=== PATIENT | male | born 1995 | race Caucasian/White ===

== ENCOUNTER 2017-03-21 22:59 | Emergency (ER) | payer OTHER ==
[~2017-03-21] VITALS: Ht 177.8 cm; Wt 84.0 kg
[~2017-03-21 22:59] MED LIST: IBUP-727; NAPR-260 PO
[2017-03-21 23:01] VITALS: Ht 177.8 cm; Wt 84.0 kg
--- NOTE | 2017-03-22 00:23 | RADRPT ---
PROCEDURE: XR Chest. CLINICAL INDICATION: Chest pain TECHNIQUE: AP Portable chest. COMPARISON: 04/21/2016 FINDINGS: The cardiomediastinal silhouette is normal. The lungs are clear. The osseous structures are unrema rkable. IMPRESSION: No acute findings. RPTAT: HIKT .Marvin Ambrose MD, MD Date Time Electronically viewed and signed by .Marvin Ambrose MD, on 03/22/2017 00:22 .T/
[2017-03-22] MEDS ORDERED: IBUP-1542 PO (00:33)
--- NOTE | 2017-03-22 00:40 | ERD ---
ER Documentation Chief Complaint Date/Time DATE: 03/22/17 TIME: 00:33 Chief Complaint chest pain on and off x 1 day HPI She is a 21-year-old male who presents to the emergency department with chest pain 1 day. Patient states that his chest pain started approximately 1 PM today. Patient describes the pain to be localized to his left chest. Patient denies any radiation of the pain. Patient states the pain is episodic lasting approximately 2 minutes. Patient states he goes 10-15 minutes without feeling the pain. Patient states the pain is present with any activity or at rest. Patient describes the pain to be "heaviness". Patient states he did take naproxen 1 hour ago. Patient denies any shortness of breath, palpitations, left upper extremity pain, diaphoresis. Patient states that his pain is relieved when taking a deep inspiration. Patient denies any recent surgery, recent travel, history of DVT, history of PE. Patient denies any increase in stress. Patient denies any chest wall trauma. ROS All systems reviewed and are negative except as per history of present illness. Medications Home Meds Active Scripts Ibuprofen* (Motrin*) 600 Mg Tab, 600 MG PO Q6, #30 TAB Prov:ANGEL CLOUD PA-C 03/22/17 Naproxen* (Naprosyn*) 500 Mg Tablet, 500 MG PO BID Y for PAIN AND/OR INFLAMMATION, #30 TAB Prov:JANIS BARRON PA-C 04/21/16 Reported Medications Ibuprofen (Motrin) 600 Mg Tablet 12/29/12 Allergies Allergies: Coded Allergies: No Known Drug Allergies (Verified Allergy, Mild, 04/21/16) PMhx/Soc History of Surgery: Yes (APPENDECTOMY) Anesthesia Reaction: No Hx Neurological Disorder: No Hx Respiratory Disorders: No Hx Cardiac Disorders: No Hx Psychiatric Problems: No Hx Miscellaneous Medical Probl: No Hx Alcohol Use: No Hx Substance Use: No Hx Tobacco Use: No FmHx Family History: No diabetes Physical Exam Vitals Vital Signs Date Time Temp Pulse Resp B/P Pulse Ox O2 Delivery O2 Flow Rate FiO2 03/21/17 23:01 97.4 51 20 148/83 100 Physical Exam GENERAL: Well-developed, well-nourished male. Appears in no acute distress. Speaking in full sentences. HEAD: Normocephalic, atraumatic. EYES: Pupils are equally reactive bilaterally. EOMs grossly intact. No conjunctival erythema. ENT: Moist mucous membranes. No uvula deviation. No kissing tonsils. NECK: Supple. No meningismus. Normal range of motion of the neck. CHEST: Tender to palpation of the left chest wall. Pain is reproducible. LUNG: Clear to auscultation bilaterally. No rhonchi, wheezing, rales or coarse breath sounds. HEART: Regular rate and rhythm. No murmurs, rubs or gallops. ABDOMEN: No scars, ecchymosis or rashes noted. Soft, nontender, and nondistended. Positive bowel sounds in all four quadrants. No rebound tenderness , no guarding. (-) McBurney's point tenderness. No CVA tenderness. BACK: No midline tenderness. EXTREMITIES: Equal pulses bilaterally. No peripheral clubbing, cyanosis or edema. No unilateral leg swelling. NEUROLOGIC: Alert and oriented. Moving all four extremities without any difficulty. Normal speech. Steady gait. SKIN: Normal color. Warm and dry. No rashes or lesions. Procedures/MDM ED COURSE: The patient was stable throughout ED course. I kept the patient and/or family informed of laboratory and diagnostic imaging results throughout the ED course. EKG: Read by Dr. Presley, attending physician. EKG shows sinus bradycardia at a rate of 58 bpm. No arrhythmias, acute ST elevations or T wave changes were noted. DIAGNOSTIC IMAGING: Read by radiologist. DIAGNOSTIC IMAGING REPORT Patient: TIGRE GARCIA : 1995 Age: 21 Sex: M MR #: [id number] DOS: 03/21/17 2334 Ordering MD: ANGEL CLOUD PA-C Location: [facility] Room/Bed: PROCEDURE: XR Chest. CLINICAL INDICATION: Chest pain TECHNIQUE: AP Portable chest. COMPARISON: 04/21/2016 FINDINGS: The cardiomediastinal silhouette is normal. The lungs are clear. The osseous structures are unremarkable. IMPRESSION: No acute findings. RPTAT: HIKT .Marvin Ambrose MD, MD Date Time Electronically viewed and signed by .Marvin Ambrose MD, on 03/22/2017 00:22 .T/ CC: ANGEL CLOUD PA-C PROCEDURES: None. Patient declined any pain medication given that he stated he took naproxen 1 hour ago. Upon reexamination, patient did report improvement in his pain. MEDICAL DECISION MAKING: This is a 21-year-old male who presents with chest pain 1 day. Patient describes the pain to be episodic in nature.. Patient denied any leg swelling, recent surgeries,recent travel, history of DVT or PE.. Vital signs were reviewed. Patient was afebrile. Patient was not hypoxic. Cardiac exam was normal. Lung exam was normal. Pain was reproduced with palpation. EKG was within normal limits. Low suspicion for acute coronary syndrome, arrhythmia or pericarditis. CXR was within normal limits. Low suspicion for pneumothorax, pneumonia or pleural effusion. At this time, patient's presentation is most consistent with chest wall pain versus chest wall pain. PRESCRIPTIONS: Ibuprofen DISCHARGE: At this time, patient is stable for discharge and outpatient management. I had a discussion with the patient as well as his mother that the patient should follow-up with a video game tester given that this is now the second time he had chest pain in the last year. Patient will likely benefit from further testing including 24 hour Holter monitoring. Cardiology referral information provided to the patient.. I have instructed the patient to promptly return to the ER at any time for any new or worsening symptoms including increased increased pain, fever, nausea, vomiting, numbness, weakness, diaphoresis or LOC. The patient and/or family expressed understanding of and agreement with this plan. All questions were answered. Home care instructions were provided. Departure Diagnosis: Primary Impression: Chest pain Chest pain type: unspecified Qualified Code: R07.9 - Chest pain, unspecified type Condition: Stable Patient Instructions: Chest Pain, Uncertain Cause Referrals: CAMP[facility] PANDYA (PCP) Additional Instructions: Call your primary care doctor TOMORROW for an appointment during the next 1-2 days.See the doctor sooner or return here if your condition worsens before your appointment time. Patient should follow-up with a video game tester for further workup of his symptoms. Patient advised to return to the emergency department for any new or worsening chest pain, shortness of breath, diaphoresis, loss of consciousness. ANGEL CLOUD PA-C March 22, 2017 00:40
[2017-03-22 01:18] VITALS: BP 122/78; PULSE 60; RESP 16; TEMP 98.3
== END 2017-03-22 01:19 | disposition home or self-care (01) ==
LOC: FTE 22:59
DX: R07.9 Chest pain, unspecified (principal)
CPT/HCPCS: 71010; 93005